=== PATIENT | male | born 1995 | race Caucasian/White ===

== ENCOUNTER → 2018-10-14 10:11 | Outpatient (CLI) | payer BC, OTHER, SELFPAY ==
--- NOTE | 2018-10-14 10:21 | RAD_ITS ---
STUDY: X-RAY - RIGHT ELBOW REASON FOR EXAM: Male, 23 years old. Trauma TECHNIQUE: 3 view(s) of the elbow. COMPARISON: None. FINDINGS: Normal visualized humerus, radius and ulna. Normal radiocapitellar and ulnotrochlear articulations. The soft tissue structures are unremarkable. RAD/Elbow min 3 Views IMPRESSION: Normal x-ray examination of the elbow. Electronically Signed: Sid Sheffield MD at 7:42 EST , Service support ,
--- NOTE | 2018-10-14 10:22 | RAD_ITS ---
STUDY: X-RAY - CERVICAL SPINE REASON FOR EXAM: Male, 23 years old. Pain TECHNIQUE: 3 view(s) of the cervical spine were obtained. COMPARISON: None FINDINGS: Normal anterior atlantoaxial articulation. Normal odontoid process. Normal cervical lordosis. Normal vertebral bodies and endplates. Normal disc space heights. Normal visualized intervertebral neuroforamina. The soft tissue structures are unremarkable. RAD/Cerv Spine 2 or 3 Views IMPRESSION: Normal x-ray examination of the visualized cervical spine. Electronically Signed: Sid Sheffield MD at 7:44 EST , Service support ,
--- OUTSIDE RECORDS SUMMARY | 2018-12-18 18:12 | XMS RPT_ITS ---
:1995 Author Organization [facility] Care Team Providers Name Role Phone Ruddy Scott Admitting Unavailable Ruddy Scott Attending Unavailable No Doctor Assigned, Nodr Primary Care Unavailable Ruddy Scott Admitting Unavailable Ruddy Scott Attending Unavailable No Doctor Assigned, Nodr Primary Care Unavailable Koby White Attending Unavailable Koby White Attending Unavailable Koby White Referring Unavailable Lance Hilario Primary Care Unavailable PROBLEMS PROBLEMS DATE TYPE CONDITION / CODE ATTENDING STATUS SOURCE 10/14/2018 Unknown M54.2 - Koby White Active [facility] Cervicalgia / Community M54.2(ICD-10) Hospital Repository 10/14/2018 Unknown M25.521 - Pain in Koby White Active [place] right elbow / Community M25.521(ICD-10) Hospital Repository PROCEDURES PROCEDURES No Procedure Records FoundRESULTS RESULTS ORTHOPEDIC VISIT Observed: 10/14/2018 Status: F Source: [place] REPORT 11:32 AM [facility] REPOSITORY [facility] Orthopa[facility] AND Sports Medicine [facility] [address] [place] [address] OFFICE VISIT Date of Service: 10/14/18 MR#: [id number] Acct: [id number] Name: BRITTANY JOSEPH Rep #: [id number] : 1995 Provider: Koby White DO Age/Sex: 23/M Location: [facility] Status: Signed Intake Intake Visit Reasons: right elbow Allergies cefdinir [From [employer]mn[employer]] Allergy (Verified 02/05/15 19:23) Hives Medications etodolac 500 mg tablet 500 mg PO BID #60 tab 10/14/18 [Rx Confirmed 10/14/18] [facility] Social History Smoking Status: Never smoker HPI right elbow: Details: BRITTANY JOSEPH is a 23 year old new patient M here today for right arm pain, he was seen here 6yrs ago and was diagnosed with ulnar neuritis. He has shoulder and neck pain on the right side. He complains of pain when working in the lateral shoulder and lateral elbow pain, he also has proximal biceps pain. He has full rom today of the elbow, but does have a shooting nerve pain that begins in the shoulder and ends at the wrist. He complains of neck pain that keeps him up at night. Denies any emg, mri or recent PT for any of the right side pain or neck. Patient denies any known injury, no whiplash injury. He has had neck pain for about 13 years. Patient has increased numbness with sudden jarring of arms. He has a pop in his elbow or wrist and he feels a shocking pain which does not happen often. He is right hand dominant. Ortho Exam Right Elbow ELBOW: positive tinels at elbow. negative hyperflexion and direct compression at elbow. Right Shoulder Testing: Positive TTP Biceps, AROM-Forward Elevation 0-180, Speed's and AROM-External Rotation at side 0-60 SHOULDER: feels tight with shoulder flexion. 50 degrees IR at 90 degrees. 5/5 IR/ER/flexion. grade 1 load and shift. negative apprehension. No AC joint tenderness. Spine Neuro: No Spurling's General: normal light touch, pain and propioception, tone normal, moves all extremities Capillary Refill <2sec: Yes Details: cervical extension- pain into trap. full cervical flexion, extension and rotation. negative spurlings. SPINE TESTING CERVICAL THORACIC LUMBAR Musculoskeletal Strength 0=absent - 5=normal Supplemental Info Personally reviewed patients cervical spine and elbow xrays from 10/14/18 which showed a normal cspine and normal right elbow. Assessment AND Plan Problems 1. Biceps tendinitis on right M75.21 2. Cervical neuritis M54.12 3. Cubital tunnel syndrome on right G56.21 Plan If not better after 6-8 weeks of physical therapy and anti- inflammatories will consider EMG and possible MRI arthrogram of shoulder. Spoke with the patient about having multiple pain. He has cervical neuritis and biceps tendinitis due to repetitive lifting. Explained that he can develop double crush syndrome of his nerves. Spoke with him about his options- physical therapy, oral anti-inflammatory, biceps injection. Recommended cervical traction and nerve glides. Gave the patient a script for physical therapy. Follow up 6-8 weeks if needed or sooner if pain, swelling, numbness or associated symptoms, or concerns develop. All questions answered. Patient in agreement of plan. Orders Orders: Medications New: Coding Level of Care Code Off vis,new,level 3 Diagnoses Biceps tendinitis on right M75.21 Cervical neuritis M54.12 Cubital tunnel syndrome on right G56.21 Laterality: right 10/14/18 1132 <Electronically signed by Koby White DO> Date Koby White DO Cosigner Signature: Date (if applicable) CC: CATHERINE-Dora Barnes ELBOW MIN 3 VIEWS Observed: 10/14/2018 Status: F Source: [place] 10:22 AM [facility] REPOSITORY [facility] Imaging Services [address] [place] [address] Elbow min 3 Views MR#: [id number] Acct: [id number] Name: BRITTANY JOSEPH Rep #: [id number] : 1995 M 23 From: Sid Sheffield PCP: ITZ Herrmann Status: REG CLI Study: Elbow min 3 Views Date of Exam: 10/14/18 Exam# [id number] Ordering Dr: Koby White DO STUDY: X-RAY - RIGHT ELBOW REASON FOR EXAM: Male, 23 years old. Trauma TECHNIQUE: 3 view(s) of the elbow. COMPARISON: None. FINDINGS: Normal visualized humerus, radius and ulna. Normal radiocapitellar and ulnotrochlear articulations. The soft tissue structures are unremarkable. RAD/Elbow min 3 Views IMPRESSION: Normal x-ray examination of the elbow. Electronically Signed: Sid Sheffield MD at 7:42 EST , Service support , CC: ITZ Barnes; Koby White DO Flaking Roll Operator: Signed CERV SPINE 2 OR 3 Observed: 10/14/2018 Status: F Source: JESSICA VIEWS 10:22 AM [facility] REPOSITORY [facility] Imaging Services [address] [place] [address] Cerv Spine 2 or 3 Views MR#: [id number] Acct: [id number] Name: BRITTANY JOSEPH Rep #: [id number] : 1995 23 From: Sid Sheffield PCP: ITZ Herrmann Status: REG CLI Study: Cerv Spine 2 or 3 Views Date of Exam: 10/14/18 Exam# [id number] Ordering Dr: Koby White DO STUDY: X-RAY - CERVICAL SPINE REASON FOR EXAM: Male, 23 years old. Pain TECHNIQUE: 3 view(s) of the cervical spine were obtained. COMPARISON: None FINDINGS: Normal anterior atlantoaxial articulation. Normal odontoid process. Normal cervical lordosis. Normal vertebral bodies and endplates. Normal disc space heights. Normal visualized intervertebral neuroforamina. The soft tissue structures are unremarkable. RAD/Cerv Spine 2 or 3 Views IMPRESSION: Normal x-ray examination of the visualized cervical spine. Electronically Signed: Sid Sheffield MD at 7:44 EST , Service support , CC: ITZ Barnes; Koby White DO Flaking Roll Operator: Signed CBC W/ AUTO DIFF Collected: 04/01/2018 Status: F Source: [place] 9:06 AM [facility] REPOSITORY TYPE CODE TESTS RESULT OUT OF RANGE REFERENCE UNITS LAB [id number](L 3.6-11.0 E3/mcL OINC) Normal WBC 8.1 LAB 51772718(L 3.90-6.10 E6/mcL OINC) Normal RBC 5.37 LAB 06588968(L 13.5-18.0 G/DL OINC) Normal Hgb 16.9 LAB 57773853(L 42.0-52.0 % OINC) Normal Hct 50.0 LAB 82864069(L 11.5-14.5 % OINC) Normal RDW 12.4 LAB 72864410(L 27.0-31.0 pg OINC) High MCH 31.4 LAB 61103525(L 33.0-37.0 G/DL OINC) Normal MCHC 33.7 LAB 49804013(L 78.0-100.0 fL OINC) Normal MCV 93.1 LAB 36082729(L 7.4-11.0 fL OINC) Normal MPV 8.6 LAB 15206175(L 130-400 E3/mcL OINC) Normal Platelet 257 Performed By: #### [id number] #### JAIDEN [facility] [place] [address] AUTO DIFF Collected: 04/01/2018 Status: F Source: [place] 9:06 AM [facility] REPOSITORY Order Comment: Order Added by Discern Expert. TYPE CODE TESTS RESULT OUT OF RANGE REFERENCE UNITS LAB 15207944(L 37.0-75.0 % OINC) Normal Neutro Auto 63.6 LAB 67765988(L 20.0-55.0 % OINC) Normal Lymph Auto 25.1 LAB 30676934(L 0.0-10.0 % OINC) High [place]illa Auto 10.1 LAB 11614949(L 0.0-11.0 % OINC) Normal Eos Auto 0.7 LAB 70926274(L 0.0-2.0 % OINC) Normal Basophil Auto 0.5 LAB 92173412(L 1.4-6.5 E3/mcL OINC) Normal Neutro 5.1 Absolute LAB 05815861(L 1.2-3.4 E3/mcL OINC) Normal Lymph Absolute 2.0 LAB 11694664(L 0.0-0.7 E3/mcL OINC) High [place]illa Absolute 0.8 LAB 17263812(L 0.0-0.7 E3/mcL OINC) Normal Eos Absolute 0.1 LAB 98086372(L 0.0-0.2 E3/mcL OINC) Normal Basophil 0.0 Absolute Performed By: #### [id number] #### JAIDEN Valle [facility] [place] [address] CMP Collected: 04/01/2018 Status: F Source: [place] 9:06 AM [facility] REPOSITORY TYPE CODE TESTS RESULT OUT OF RANGE REFERENCE UNITS LAB 79799414(L 70-99 mg/dL OINC) Glucose Normal Lvl 85 LAB 14021107(L 7-18 mg/dL OINC) BUN Normal 18 LAB 1520534(LO 0.6-1.3 mg/dL INC) Normal Creatinine 0.8 LAB 01199267(L 8.4-10.2 mg/dL OINC) Calcium Normal Lvl 9.3 LAB 57650738(L 136-145 mEq/L OINC) Sodium Normal Lvl 137 LAB 94066088(L 3.5-5.1 mEq/L OINC) Normal Potassium Lvl 4.3 LAB 97601035(L 98-107 mEq/L OINC) Chloride Normal 101 LAB 81940537(L 24.0-30.0 mEq/L OINC) CO2 Normal 26.7 LAB 78762903(L 42-121 Int._Unit/ OINC) L Alk Phos Normal 47 LAB 56289436(L 0.2-1.0 mg/dL OINC) Bili Normal Total 0.9 LAB 11463571(L 3.2-5.0 G/DL OINC) Albumin Normal Lvl 4.3 LAB 92315602(L 6.4-8.3 G/DL OINC) Total Normal Protein 7.2 LAB 90806697(L 10-40 Int._Unit/ OINC) L ALT Normal 18 LAB 01954213(L 10-42 Int._Unit/ OINC) L AST Normal 17 LAB 04647580(L 5.4-30.0 ratio OINC) Normal BUN/Creat Ratio 22.5 LAB 38733323(L 2.0-4.0 G/DL OINC) Globulin Normal 2.9 LAB 78500460(L 1.1-1.9 ratio OINC) A/G Normal Ratio 1.5 Performed By: #### [id number] #### JAIDEN [facility] [address] [place] [address] EGFR Collected: 04/01/2018 Status: F Source: [place] 9:06 AM [facility] REPOSITORY Order Comment: Order added by Discern Expert. TYPE CODE TESTS RESULT OUT OF RANGE REFERENCE UNITS LAB 48848689(LO mL/min/1.73 INC) m2 Normal eGFR >60 LAB 52073416(LO mL/min/1.73 INC) m2 Normal eGFR AA >60 Performed By: #### [id number] #### JAIDEN [facility] [place] [address] CRP Collected: 04/01/2018 Status: F Source: [place] 9:06 AM [facility] REPOSITORY TYPE CODE TESTS RESULT OUT OF RANGE REFERENCE UNITS LAB 06284772(LO 0.00-0.75 mg/dL INC) Normal CRP <0.50 Performed By: #### [id number] #### JAIDEN [facility] [address] [place] [address] AMYLASE Collected: 04/01/2018 Status: F Source: [place] 9:06 AM [facility] REPOSITORY TYPE CODE TESTS RESULT OUT OF RANGE REFERENCE UNITS LAB 41384603(LO 25-125 Int._Unit/L INC) Normal Amylase Lvl 38 Performed By: #### 0891071 #### JAIDEN [facility] [address] [place] [address] LIPASE LEVEL Collected: 04/01/2018 Status: F Source: [place] 9:06 AM [facility] REPOSITORY TYPE CODE TESTS RESULT OUT OF RANGE REFERENCE UNITS LAB 87114331(LO 8-57 U/L INC) Normal Lipase Lvl 23 Performed By: #### [id number] #### JAIDEN [facility] [place] [address] XR ABDOMEN ACUTE (PA Observed: 04/01/2018 Status: F Source: [place] CHEST) 8:47 AM [facility] REPOSITORY Exam Date/Time: 04/01/2018 08:57 EDT Reason for Exam: Abdominal pain Report STUDY: XR Abdomen Acute (PA Chest); 04/01/2018 8:57 am INDICATION: Abdominal pain. COMPARISON: None. ACCESSION NUMBER(S): [id number] ORDERING CLINICIAN: Ruddy Scott FINDINGS: Supine and upright AP views of the abdomen and a single PA view of the chest were obtained. There is no focal infiltrate, pleural effusion or pneumothorax identified. The cardiac silhouette is within normal limits for size. There is a nonobstructive bowel gas pattern present. No free intraperitoneal air or air-fluid levels are identified. No abnormal calcifications are seen over the abdomen. Osseous structures are grossly unremarkable in appearance. IMPRESSION: 1. No focal infiltrate or pneumothorax. 2. Nonobstructive bowel gas pattern. FINAL REPORT Dictated: 04/01/2018 9:18 am Telly Chan MD Signed (Electronic Signature): 04/01/2018 9:18 am Signed by: Telly Chan MD Technologist: FOUZIA ALLERGIES ALLERGIES DATE TYPE / CODE NAME / CODE REACTION SEVERITY SOURCE 02/05/2015 Drug cefdinir/[id number] Hives Unknown [place] Allergy/416 88(RXNORM) [facility] 475641([facility] ED CT) Repository Drug/088631 No Known Amish 003([facility]) Allergies System Repository ENCOUNTERS ENCOUNTERS ADMIT/DISCHARGE ACCOUNT NUMBER ADMITTING ENCOUNTER LOCATION SOURCE CLASS 10/14/2018 [id number] [facility] 10/14/2018/10/14/19 [id number] Ambulatory BMSBuilding: [place] 19 [facility] Repository 04/01/2018/04/01/20 [id number] [place], [place] Amish Amish [facility] ding:[facility] Repository 04/01/2018/04/01/20 [id number] [place], Ambulatory [facility] ding:CD:[id number] [facility] [id number]: Repository CD:[id number] 04/01/2018 [id number] Ambulatory [address] [place] [address] Repository PAYERS PAYERS ENCOUNTER GUARANTOR PAYER SUBSCRIBER SOURCE 10/14/2018 BRITTANY JOSEPH414 Primary BRITTANY M [place] Insurance:ANTHEMPolic SPRENGDOB: [facility] y Number: [id number] [address]Fuc: [id number] Repository Date:[id number] [address] () [id number] LORENZO [address]FY: 10/14/2018 Secondary NOT GIVENUNK [place] Insurance:SELF PAY [facility] Number: Effective Repository Date:2018-10-14 10/14/2018 BRITTANY M [id number] Primary BRITTANY M [place] TR Insurance:ANTHEMPolic SPRENGDOB: [facility] y Number: [id number] [address]Yla: [id number] Repository Date:4046-27-86NE [address] () [id number] LORENZO [address]WZ: 10/14/2018 Secondary NOT GIVENUNK Jessica Insurance:SELF PAY [facility] Number: Effective Repository Date:2018-10-13 04/01/2018 BRITTANY SPRENGDOB: Primary BRITTANY SPRENGDOB: Amish Insurance:ANTHEMPolic [id number] [facility] [address] y Number: Effective [facility] [address] System 240[place], Date:2018-04-01 [facility], Repository [place] [id number] [place] [address]Cxh: Name:Felipe Molina [address] [address]Fso: TARIQ MATTSON (hp) [phone]: [phone] (WP) 04/01/2018 Secondary JORGE Faith Insurance:AETNARituy OPALDOB[facility] Number: Effective [id number] System Date:2018-04-01 - [facility] [address] Repository [id number] NO, Name:CD:[id number] [address]OX [place] [address]05637[place] 2449942[address]Tel: [phone]: [phone] (HP) (WP) 04/01/2018 BRITTANY SPRENGDOB: Primary BRITTANY SPRENGDOB: Amish Insurance:[facility] [id number] [facility] y Number: Effective [facility] System [address] [place] [address], Date:2018-04-01 - [facility] Repository [place] [id number] [place] [address]Iom: Name:Felipe [address]Tel: [id number], [place] (HP) [phone]: [phone] ([phone] (WP) 04/01/2018 Secondary JORGE Faith Insurance:AETNAAissatou JOSEPHDOB: [facility] Number: Effective [id number] System Date:2018-04-01 - [facility] [address] Repository [id number] ToniSHELBIE, Name:CD:[id number] BOX [place] [address]72[address]JJH[place] 2449942[address]Tel: [phone]: [phone] (HP) (WP) 04/01/2018 BRITTANY SPRENGDOB: Primary BRITTANY SPRENGDOB: [place] Insurance:[facility] [id number] [facility] y Number: [facility] [address] Repository [address] [place], [place] [id number] [address] [place] [address] [id number]: Date:Plan Name:[facility] [phone]: () ()
== END ==
PROVIDERS: Family Provider Family Medicine; PCP Nurse Practitioner Family; Referring Provider Orthopaedic Surgery; Visit Provider Orthopaedic Surgery
DX: M54.2 Cervicalgia (principal); M25.521 Pain in right elbow
CPT/HCPCS: 72040; 73080